=== PATIENT | female | born 1935 | race African-American/Black ===

== ENCOUNTER 2016-09-21 19:08 | Emergency (ER) | payer BC, OTHER ==
[~2016-09-21 19:08] MED LIST: ALPHAGAN P0.1 % OPH; BENTYL20 PO; CIP5 PO; CLARIT10 PO; COSOPT OPH; DEXILANT; FERROUS SULF325 M1 PO; FORTAMET500 MG PO; XALAT OPH
[2016-09-21 20:35] LABS: BASOPHILS 0.3 %; BASOPHILS ABSOLUTE 0.04 10/3/uL (0.0-0.16); EOSINOPHILS 2.3 %; HEMATOCRIT 37.5 % (36.0-48.0); HEMOGLOBIN 11.7 g/dL (12.0-16.0); IMMATURE GRANULOCYTES 1.7 %; IMMATURE GRANULOCYTES ABSOLUTE 0.22 10/3/uL (0.0-0.11); LYMPHOCYTES 15.6 %; LYMPHOCYTES ABSOLUTE 2.05 10/3/uL (0.67-4.30); MANUAL DIFF NO %; MEAN CORPUS HGB CONC 31.2 g/dL (32.0-36.0); MEAN CORPUSCULAR HEMOGLOB 24.3 pg (26.0-34.0); MEAN PLATELET VOLUME 9.4 fL (9.2-13.0); MONOCYTES 7.6 %; NEUTROPHILS 72.5 %; PLATELET COUNT 251 10/3/uL (150-400); RBC DISTRIBUTION WIDTH 14.7 % (12.0-16.0); RED CELL COUNT 4.81 10/6/uL (4.0-5.6); WHITE BLOOD CELLS 13.1 10/3/uL (4.5-10.5)
[2016-09-21 20:50] LABS: BUN (BLOOD UREA NITROGEN) 20 MG/DL (6-23); CALCIUM, SERUM 9.3 MG/DL (8.5-10.4); CHLORIDE, SERUM 111 MMOL/L (96-112); CO2 (CARBON DIOXIDE) 19 MMOL/L (24-34); GFR AFRICAN AMERICAN 30 ML/MIN (>=60); GFR NON AFRICAN AMERICAN 26 ML/MIN (>=60); GLUCOSE, SERUM 178 MG/DL (60-99); POTASSIUM, SERUM 3.9 MMOL/L (3.5-5.3); SODIUM, SERUM 143 MMOL/L (135-148)
[2016-09-21 20:56] LABS: BAND NEUTROPHILS 7 %; EOSINOPHILS 2 %; EOSINOPHILS ABSOLUTE (CALC) 0.26 10/3/uL (0.0-0.53); ER DIFF TAT 0 Hrs 25 Mins; LYMPHOCYTES 11 %; LYMPHOCYTES ABSOLUTE (CALC) 1.44 10/3/uL (0.67-4.30); MONOCYTES 7 %; MONOCYTES ABSOLUTE (CALC) 0.92 10/3/uL (0.21-1.20); NEUTROPHILS ABSOLUTE (CALC) 10.48 10/3/uL (2.02-8.40); SEGMENTED NEUTROPHIL (0) 73 %; TOTAL NUCLEATED CELLS 100
[2016-09-21 20:57] LABS: PLATELET ESTIMATE ADQ (ADEQUATE)
== END 2016-09-21 21:15 | disposition home or self-care (01) ==
LOC: ER 19:08
PROVIDERS: Physician Assistant Medical
DX: J01.90 Acute sinusitis, unspecified (principal); E11.65 Type 2 diabetes mellitus with hyperglycemia; N18.9 Chronic kidney disease, unspecified; E11.9 Type 2 diabetes mellitus without complications; D64.9 Anemia, unspecified; Z79.899 Other long term (current) drug therapy
CPT/HCPCS: 71020; 80048; 85025; 87070; 87880; 99284